=== PATIENT | male | born 1960 | race Caucasian/White ===

== ENCOUNTER 2021-12-02 10:52 | Emergency (ER) | payer BC ==
[2021-12-02 12:10] LABS: Absolute Lymphocytes (CBC) 1.2 K/uL (0.7-4.9); Hematocrit 49.2 % (39.6-49.0); Lymphocytes % 13.2 % (15.3-44.8); MPV 9.6 fL (7.6-11.3); RBC Red Blood Cell Count 6.14 M/uL (4.33-5.43)
[2021-12-02 12:29] LABS: Albumin 3.7 g/dL (3.4-5.0); Bilirubin Direct 0.2 mg/dL (0-0.2); Bilirubin Total 0.3 mg/dL (0.2-1.0); Magnesium 1.9 mg/dL (1.8-2.4); Potassium 4.2 mmol/L (3.5-5.1); Protein, Total 7.7 g/dL (6.4-8.2); Troponin High Sensitivity 17.2 pg/mL (<58.9)
--- NOTE | 2021-12-02 14:36 | RAD REPORT ---
EXAM DESCRIPTION: CT - Chest For Pe Angio - 12/02/2021 2:11 pm CLINICAL HISTORY: sob COMPARISON: None. TECHNIQUE: Dynamically enhanced axial 3 mm thick images of the chest were obtained during administra tion of <100> mL Isovue 370 IV contrast. Coronal and oblique reconstruction images were generated and reviewed. Exam utilizes a protocol for optimal evaluation of pulmonary arterial tree. Maximum intensity projections 3D imaging was utilized All CT scans are performed using dose optimization technique as appropriate and may include automated exposure control or mA/KV adjustment according to patient size. FINDINGS: A pulmonary embolus is not seen. A thoracic aortic aneurysm is not noted. A pleural effusion is not seen. A pericardial effusion is not seen. A lung consolidation is not present. IMPRESSION: Negative for a pulmonary embolism.
--- NOTE | 2021-12-02 14:37 | RAD REPORT ---
EXAM DESCRIPTION: Evens Single View12/02/2021 12:34 pm CLINICAL HISTORY: sob COMPARISON: none FINDINGS: The lungs appear clear of acute infiltrate. The heart is borderline enlarged IMPRESSION: No acute abnormalities displayed
[2021-12-02] MEDS ORDERED: HYDROCODONE/CHLORPHEN 5 ML/OSYR ONE (16:11)
[2021-12-02] MEDS ORDERED: BEBTELOVIMAB 175 MG/2 ML VIAL IV ONE (16:13)
[2021-12-02] MEDS ORDERED: NA CHLORIDE 0.9% 500 ML ONE (16:19)
--- NOTE | 2021-12-02 16:24 | EDPHYS ---
Physician Documentation [facility] Name: Garrett Silvestre Age: 61 yrs Sex: Male : 1960 Arrival Date: 12/02/2021 Time: 10:55 Bed Treatment Private MD: ED Physician Dk Olmstead HPI: 12/02 11:45 This 61 yrs old Male presents to ER via Ambulatory with complaints of Covid+, Chest cp Pressure. 11:45 The patient or guardian reports cough, that is intermittent, with productive sputum. cp 11:45 Onset: The symptoms/episode began/occurred 3 day(s) ago. cp 11:45 Associated signs and symptoms: Pertinent positives: chest pain, sore throat, Pertinent cp negatives: diarrhea, fever, vomiting. Historical: - Allergies: 11:20 No Known Allergies; jl7 - PMHx: 11:20 Diabetes mellitus; Hypertensive disorder; Hypercholesterolemia; jl7 - Immunization history:: Client reports receiving the 2nd dose of the Covid vaccine. - Social history:: Smoking status: Patient denies any tobacco usage or history of. ROS: 11:50 Constitutional: Negative for fever, poor PO intake. cp 11:50 Cardiovascular: Positive for chest pain, with cough. 11:50 Eyes: Negative for injury, pain, redness, and discharge. cp 11:50 ENT: Positive for sore throat, Negative for ear pain, difficulty swallowing, difficulty handling secretions. 11:50 Respiratory: Positive for cough, "sounds productive", shortness of breath, Negative for wheezing. 11:50 Abdomen/GI: Negative for abdominal pain, vomiting, diarrhea, constipation. 11:50 Back: Negative for pain at rest, pain with movement. 11:50 Neuro: Negative for altered mental status, dizziness, headache, weakness. 11:50 All other systems are negative. Exam: 11:25 ECG was reviewed by the Attending Physician. cp 11:55 Constitutional: The patient appears in no acute distress, alert, awake, cp non-diaphoretic, non-toxic, well developed, well nourished. 11:55 Head/Face: Normocephalic, atraumatic. cp 11:55 Eyes: Periorbital structures: appear normal, Conjunctiva: normal, no exudate, no injection, Sclera: no appreciated abnormality, Lids and lashes: appear normal, bilaterally. 11:55 ENT: External ear(s): are unremarkable, Ear canal(s): are normal, TM's: dullness, bilaterally, Nose: is normal, Mouth: Lips: moist, Oral mucosa: moist, Posterior pharynx: Airway: no evidence of obstruction, patent, Tonsils: no enlargement, no exudate, swelling, is not appreciated, erythema, that is mild, exudate, is not appreciated. 11:55 Neck: ROM/movement: is normal, is supple, without pain, no range of motions limitations, no meningismus. 11:55 Chest/axilla: Inspection: normal, Palpation: is normal, no crepitus, no tenderness. 11:55 Cardiovascular: Rate: tachycardic, Rhythm: regular, Edema: is not appreciated, JVD: is not appreciated. 11:55 Respiratory: the patient does not display signs of respiratory distress, Respirations: normal, no use of accessory muscles, no retractions, labored breathing, is not present, Breath sounds: bronchial sounds, that are mild, are heard diffusely. 11:55 Abdomen/GI: Inspection: abdomen appears normal, Palpation: abdomen is soft and non-tender, in all quadrants. 11:55 Back: pain, is absent, ROM is normal. 11:55 Skin: no rash present. 11:55 Neuro: Orientation: to person, place \\T\\ time. Mentation: is normal, Motor: moves all fours, strength is normal, Sensation: is normal. Vital Signs: 11:16 BP 138 / 86; Pulse 106; Resp 17; Temp 98.5; Pulse Ox 97% on R/A; Weight 111.13 kg; jl7 Height 6 ft. 3 in. (190.50 cm); 16:40 BP 147 / 79; Pulse 97; Resp 18; Pulse Ox 97% on R/A; mb7 11:16 Body Mass Index 30.62 (111.13 kg, 190.50 cm) 7 MDM: 15:09 Patient medically screened. cp 16:15 ED course: Patient given verbal consent after being informed that Bebtelovimab is an cp investigational drug that is not approved by FDA for treatment of COVID-19. 16:22 Data reviewed: vital signs, nurses notes, lab test result(s), EKG, radiologic studies, cp CT scan, plain films. 16:22 Differential diagnosis: bronchitis, flu, pneumonia, PE. Test interpretation: by ED cp physician or midlevel provider: ECG, plain radiologic studies. Counseling: I had a detailed discussion with the patient and/or guardian regarding: the historical points, exam findings, and any diagnostic results supporting the discharge/admit diagnosis, the presence of at least one elevated blood pressure reading (>120/80) during this emergency department visit, lab results, radiology results, the need for outpatient follow up, a family practitioner, to return to the emergency department if symptoms worsen or persist or if there are any questions or concerns that arise at home. Response to treatment: the patient's symptoms have mildly improved after treatment, VSS. Patient appears non-toxic and no signs of respiratory distress. Will discharge to home for continued monitoring. 12/02 11:31 Order name: Basic Metabolic Panel; Complete Time: 13:17 12/02 13:18 Interpretation: Normal except: GLUC 109; GFR 81. 12/02 11:31 Order name: CBC with Diff; Complete Time: 13:17 12/02 14:22 Interpretation: Normal except: RBC 6.14; HCT 49.2; MCH 25.7; RDW 15.5; SHANNAN% 76.2; LYM% cp 13.2. 12/02 11:31 Order name: LFT's; Complete Time: 13:17 12/02 15:50 Interpretation: Normal except: GLOB 4.0; A/G 0.9. 12/02 11:31 Order name: Magnesium; Complete Time: 13:17 12/02 11:31 Order name: NT PRO-BNP; Complete Time: 13:17 12/02 11:31 Order name: PT-INR; Complete Time: 13:17 12/02 11:31 Order name: Troponin HS; Complete Time: 13:17 12/02 11:31 Order name: XRAY Chest (1 view); Complete Time: 15:49 12/02 13:18 Order name: Strep; Complete Time: 15:49 12/02 13:19 Order name: CT Chest For PE Angio; Complete Time: 15:49 12/02 15:56 Interpretation: Report reviewed. 12/02 14:36 Order name: Glucose, Ancillary Testing; Complete Time: 15:49 EDHI 12/02 14:41 Order name: Throat Culture EDMS 12/02 11:24 Order name: EKG - Nurse/Tech; Complete Time: 11:24 mb7 12/02 11:31 Order name: EKG; Complete Time: 11:31 cp 12/02 11:31 Order name: Cardiac monitoring; Complete Time: 11:36 cp 12/02 11:31 Order name: EKG - Nurse/Tech; Complete Time: 11:36 cp 12/02 11:31 Order name: IV Saline Lock; Complete Time: 11:48 cp 12/02 11:31 Order name: Labs collected and sent; Complete Time: 11:49 cp 12/02 11:31 Order name: O2 Per Protocol; Complete Time: 16:39 cp 12/02 11:31 Order name: O2 Sat Monitoring; Complete Time: 16:39 cp EC:25 Rate is 107 beats/min. Rhythm is regular. ID interval is normal. QRS interval is cp normal. QT interval is normal. T waves are Inverted in leads aVL, aVR. Interpreted by me. Reviewed by me. Administered Medications: 16:18 Drug: bebtelovimab 1 application Route: IV; Rate: calculated rate; Site: left jl7 antecubital; 16:21 Follow up: Response: No adverse reaction; IV Status: Completed infusion jl7 16:18 Drug: Tussionex Pennkinetic ER (chlorpheniramine-hydrocodone) Suspension 5 ml Route: PO;jl7 16:45 Follow up: Response: No adverse reaction jl7 16:18 Drug: NS 0.9% 500 ml Route: IV; Rate: bolus; Site: left antecubital; jl7 16:45 Follow up: Response: No adverse reaction; IV Status: Completed infusion; IV Intake: jl7 500ml 16:48 Drug: Decadron - Dexamethasone 6 mg Route: IVP; Site: left antecubital; jl7 16:55 Follow up: Response: No adverse reaction jl7 Disposition: 17:43 Co-signature as Attending Physician, Dk Olmstead MD I agree with the assessment and kdr plan of care. Disposition Summary: 12/02/21 16:23 Discharge Ordered Location: Home cp Problem: new cp Symptoms: have improved cp Condition: Stable cp Diagnosis - SARS-associated coronavirus as the cause of diseases classified elsewhere cp Followup: cp - With: Private Physician - When: 2 - 3 days - Reason: Recheck today's complaints Discharge Instructions: - Discharge Summary Sheet cp - Aspirin and Your Heart cp - COVID-19 cp - Things to Know about the COVID-19 Pandemic - [facility] cp - 10 Things You Can Do to Manage Your COVID-19 Symptoms at Home - [facility] cp - COVID-19: Quarantine vs. Isolation - [facility] cp - Prevent the Spread of COVID-19 if You Are Sick - [facility] cp Forms: - Medication Reconciliation Form cp - Thank You Letter cp - Antibiotic Education cp - Prescription Opioid Use cp Prescriptions: - Bromfed DM 2-30-10 mg/5 mL Oral syrup - take 10 milliliter by ORAL route every 4-6 hours; 200 milliliter; Refills: 0, cp Product Selection Permitted - dexamethasone 2 mg Oral tablet - take 1 tablet by ORAL route every 12 hours for 5 days; 10 tablet; Refills: 0, cp Product Selection Permitted - Zithromax Z-Damir 250 mg Oral Tablet - take 1 tablet by ORAL route as directed for 5 days Day 1 - take two (2) tablets cp one time. Day 2, 3, 4 , 5 take one (1) tablet once daily.; 6 tablet; Refills: 0, Product Selection Permitted Signatures: Dispatcher [employer] EDMS Dk Olmstead MD MD kdr Page, Corey, PA PA cp Leal, Jahala, RN RN jl7 Danette Rosa7
--- NOTE | 2021-12-02 16:24 | ER ---
Nurse's Notes [facility] Name: Garrett Silvestre Age: 61 yrs Sex: Male : 1960 Arrival Date: 12/02/2021 Time: 10:55 Bed Treatment Private MD: Diagnosis: SARS-associated coronavirus as the cause of diseases classified elsewhere Presentation: 12/02 11:16 Chief complaint: Patient states: Tested positive for COVID with home test x5 days, jl7 reports continued symptoms, not improving. Coronavirus screen: Vaccine status: Patient reports receiving the 2nd dose of the covid vaccine. cough unrelated to allergies, Client presents with at least one sign or symptom that may indicate coronavirus-19. Standard/surgical mask placed on the client. Provider contacted for isolation considerations. Ebola Screen: No symptoms or risks identified at this time. Initial Sepsis Screen: Does the patient meet any 2 criteria? No. Patient's initial sepsis screen is negative. Does the patient have a suspected source of infection? No. Patient's initial sepsis screen is negative. Risk Assessment: Do you want to hurt yourself or someone else? Patient reports no desire to harm self or others. Onset of symptoms was November 28, 2021. 11:16 Method Of Arrival: Ambulatory jl7 11:16 Acuity: MEGHAN 3 jl7 Triage Assessment: 11:20 General: Appears in no apparent distress. uncomfortable, Behavior is calm, cooperative, jl7 appropriate for age. Pain: Denies pain. Cardiovascular: Patient's skin is warm and dry. Chest pain is denied. Respiratory: Airway is patent Respiratory effort is even, unlabored, Respiratory pattern is regular, symmetrical. Derm: Skin is pink, warm \T\ dry. Historical: - Allergies: 11:20 No Known Allergies; jl7 - PMHx: 11:20 Diabetes mellitus; Hypertensive disorder; Hypercholesterolemia; jl7 - Immunization history:: Client reports receiving the 2nd dose of the Covid vaccine. - Social history:: Smoking status: Patient denies any tobacco usage or history of. Screenin:00 Abuse screen: Denies threats or abuse. Denies injuries from another. Nutritional jl7 screening: No deficits noted. Tuberculosis screening: No symptoms or risk factors identified. Fall Risk IV access (20 points). Assessment: 11:30 General: See triage. jl7 16:00 Reassessment: Patient appears in no apparent distress at this time. No changes from jl7 previously documented assessment. Patient and/or family updated on plan of care and expected duration. Pain level reassessed. Patient is alert, oriented x 3, equal unlabored respirations, skin warm/dry/pink. Vital Signs: 11:16 BP 138 / 86; Pulse 106; Resp 17; Temp 98.5; Pulse Ox 97% on R/A; Weight 111.13 kg; jl7 Height 6 ft. 3 in. (190.50 cm); 16:40 BP 147 / 79; Pulse 97; Resp 18; Pulse Ox 97% on R/A; mb7 11:16 Body Mass Index 30.62 (111.13 kg, 190.50 cm) jl7 ED Course: 10:55 Patient arrived in ED. ja2 11:20 Triage completed. jl7 11:20 Darrel Josue PA is PHCP. cp 11:20 Dk Olmstead MD is Attending Physician. cp 11:20 Arm band placed on right wrist. jl7 11:23 EKG done, by ED staff, reviewed by Darrel MERLOS. mb7 11:49 Basic Metabolic Panel Sent. mb7 11:49 CBC with Diff Sent. mb7 11:49 LFT's Sent. mb7 11:49 Magnesium Sent. mb7 11:49 Troponin HS Sent. mb7 11:49 Inserted saline lock: 20 gauge in left antecubital area, using aseptic technique. Blood mb7 collected. 12:36 XRAY Chest (1 view) In Process Unspecified. EDMS 13:35 Strep Sent. mb7 14:12 CT Chest For PE Angio In Process Unspecified. EDMS 15:59 Nazia Covarrubias, ANGELICA is Primary Nurse. jl7 16:00 Patient has correct armband on for positive identification. Pulse ox on. NIBP on. jl7 16:00 Patient maintains SpO2 saturation greater than 95% on room air. jl7 17:16 Primary Nurse role handed off by Nazia Covarrubias RN jl7 17:27 Nazia Covarrubias, ANGELICA is Primary Nurse. jl7 17:28 No provider procedures requiring assistance completed. IV discontinued, intact, jl7 bleeding controlled, No redness/swelling at site. Pressure dressing applied. Administered Medications: 16:18 Drug: bebtelovimab 1 application Route: IV; Rate: calculated rate; Site: left jl7 antecubital; 16:21 Follow up: Response: No adverse reaction; IV Status: Completed infusion jl7 16:18 Drug: Tussionex Pennkinetic ER (chlorpheniramine-hydrocodone) Suspension 5 ml Route: PO;jl7 16:45 Follow up: Response: No adverse reaction jl7 16:18 Drug: NS 0.9% 500 ml Route: IV; Rate: bolus; Site: left antecubital; jl7 16:45 Follow up: Response: No adverse reaction; IV Status: Completed infusion; IV Intake: jl7 500ml 16:48 Drug: Decadron - Dexamethasone 6 mg Route: IVP; Site: left antecubital; 7 16:55 Follow up: Response: No adverse reaction jl7 Medication: 17:28 VIS not applicable for this client. jl7 Intake: 16:45 IV: 500ml; Total: 500ml. jl7 Outcome: 16:23 Discharge ordered by . berta 17:28 Discharged to home ambulatory. [facility] 17:28 Condition: stable 17:28 Discharge instructions given to patient, Instructed on discharge instructions, follow up and referral plans. medication usage, Demonstrated understanding of instructions, follow-up care, medications, Prescriptions given X 3. 17:29 Patient left the ED. jl7 Signatures: Dispatcher [employer] EDMS Darrel Josue PA PA cp Leal, Jahala, RN RN jl7 Carolina Sharp Mary 7
[2021-12-02] MEDS ORDERED: dexAMETHasone 10 MG/ML VIAL ONE (16:46)
[2021-12-02 17:47] VITALS: TEMP 98.5; O2SAT 97
[2021-12-02 17:49] VITALS: BP 147/79
--- NOTE | 2021-12-05 12:24 | EKG ---
Test Date: 2021-12-02 Test Time: 11:18:20 Learning Coach: MB MEASUREMENT RESULTS: Intervals: Rate: 107 UT: 176 QRSD: 80 QT: 340 QTc: 453 [place]: P: 22 UT: 176 QRS: -39 T: 58 INTERPRETIVE STATEMENTS: Sinus tachycardia Left axis deviation Low voltage QRS Abnormal ECG No previous ECG available for comparison Electronically Signed On 12-05-21 12:17:24 CDT by Yonny Posada
== END 2021-12-02 17:29 | disposition home or self-care (01) ==
LOC: ER 10:52
DX: U07.1 COVID-19 (principal); R05.9 Cough, unspecified; E11.9 Type 2 diabetes mellitus without complications; I10 Essential (primary) hypertension
CPT/HCPCS: 93005; 87070; 85025; 80048; 36415; 83735; 85610; 82947; 80076; 87081; 84484; 83880; 71275; 71045; 99284; Q9967; J1100; J7040